=== PATIENT | female | born 1990 | race African-American/Black ===

== ENCOUNTER 2023-08-25 21:52 | Emergency (ER) | payer OTHER, SELFPAY ==
[2023-08-25] MEDS ORDERED: Ketorolac Tromethamine 30 MG (1 mL) VIAL ONE (23:04)
== END 2023-08-25 23:13 | disposition home or self-care (01) ==
LOC: CSHERS 21:52
DX: S33.9XXA Sprain of unspecified parts of lumbar spine and pelvis, initial encounter (principal); I10 Essential (primary) hypertension; X58.XXXA Exposure to other specified factors, initial encounter
CPT/HCPCS: 96372; 99283; J1885